=== PATIENT | male | born 2005 | race Caucasian/White ===

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

== ENCOUNTER 2024-05-28 08:48 | Inpatient (IN) ==
[2024-05-28 11:11] LABS: Urine Appearance Clear; Urine Bilirubin Negative (Negative); Urine Blood Negative (Negative); Urine Color Light-Yellow; Urine Glucose Negative (Negative); Urine Ketones Trace (Negative); Urine Nitrite Negative (Negative); Urine Protein Negative (Negative); Urine Specific Gravity 1.027 (1.002-1.030); Urine Urobilinogen Negative (Negative)
[2024-05-28 11:13] LABS: Hematocrit 48.9 % (38-53); Hemoglobin 16.9 g/dL (13.2-16.3); Mean Corpuscular Hemoglobin 31.5 pg (27-33); Mean Corpuscular Hgb Conc 34.5 g/dL (31-36); Mean Corpuscular Volume 91.2 fL (80-97); Red Blood Count 5.36 10^6/uL (4.06-5.63); Red Cell Distribution Width 13.2 % (12-17); White Blood Count 5.6 10^3/uL (3.6-10.2)
[2024-05-28 11:40] LABS: ABS Eosinophils 0.1 10^3/uL (0.0-0.5); ABS Lymphocytes 2.1 10^3/uL (1.0-4.8); ABS Monocytes 0.7 10^3/uL (0.0-1.1); ABS Neutrophils 2.6 10^3/uL (1.5-7.6); ABS Nucleated RBC 0.01 10^3/ul; Eosinophil % 2.1 %; Lymphocyte % 38.1 %; Mean Platelet Volume 9.8 fL (7.5-11.2); Nucleated Red Blood Cells % 0.2 %/100WBC (0.0-0.8); Platelet Count 174 10^3/uL (150-450)
[2024-05-28 11:53] LABS: Urine Benzodiazepine Screen None Detected (None Detect); Urine Cannabinoids Screen None Detected (None Detect); Urine Opiates Screen None Detected (None Detect)
[2024-05-28 11:54] LABS: ALT 14 U/L (7-52); AST 20 U/L (13-39); Acetaminophen < 15 mcg/mL; Albumin 5.1 g/dL (3.5-5.7); Albumin/Globulin Ratio 1.6 (1-3); Alcohol, S < 13 mg/dL (<13); Alkaline Phosphatase 91 U/L (35-149); Anion Gap 6 mmol/L (2-16); Blood Urea Nitrogen 15 mg/dL (6-24); CO2 Carbon Dioxide 32 mmol/L (22-32); Chloride 101 mmol/L (101-111); Creatinine, Serum 1.26 mg/dL (0.67-1.17); Globulin 3.1 g/dL (2-4); Glucose 94 mg/dL (70-100); Magnesium 2.3 mg/dL (1.9-2.7); Potassium 4.2 mmol/L (3.5-5.0); Salicylate < 2.50 mg/dL (<30); Sodium 139 mmol/L (135-145); Total Bilirubin 0.4 mg/dL (0.2-1.0); Total Protein 8.2 g/dL (6.4-8.9); eGFR CKD-EPI 83.7 (>60)
[2024-05-28 12:40] LABS: TSH Ultra Thyroid Stim Horm 1.54 mcIU/mL (0.34-5.60)
[2024-05-28] MEDS ORDERED: Al Hydrox/Mg Hydrox/Simet LIQ 30 ML UDC PO PRN (15:38)
[2024-05-30 13:04] LABS: TSH Ultra Thyroid Stim Horm 0.55 mcIU/mL (0.34-5.60)
[2024-05-30 13:06] LABS: Free T4 1.16 ng/dL (0.61-1.12)
[2024-05-30 13:07] LABS: Free T3 3.81 pg/mL (2.5-3.9)
[2024-05-30 13:15] LABS: Folate 12.29 ng/mL (5.90-24.80)
[2024-05-30 13:20] LABS: Vitamin D Total 25(OH) 23.8 ng/mL (20-50)
[2024-06-01 11:10] VITALS: BP 154/80
[2024-06-01] MEDS: Influenza Vaccine *TRI* 2024-25* 0.5 ML SYRINGE IM ONE (13:03)
== END 2024-06-01 13:45 | disposition home or self-care (01) | DRG 756 ==
LOC: ED 08:48 → EDHOLD 15:38 → BSU 16:38
PROVIDERS: ADMIT Psychiatry & Neurology Psychiatry; ATTEND Psychiatry & Neurology Psychiatry